=== PATIENT | female | born 1940 | race Caucasian/White ===

== ENCOUNTER → 2018-12-23 | Outpatient (CLI) | payer MEDICARE ==
[~2018-12-23] MED LIST: ASPI81CH PO; Bentyl20 MG PO; Hair, Skin & N1 EACH PO; Vitamin D2000 UNIT PO
== END | disposition home or self-care (01) ==
LOC: PLD 07:36 → LAB SHORT 07:36
DX: C44.42 Squamous cell carcinoma of skin of scalp and neck (principal)
CPT/HCPCS: 88305

== ENCOUNTER → 2019-05-19 | Outpatient (CLI) | payer MEDICARE | END | disposition home or self-care (01) | LOC: PLD 08:02 → LAB SHORT 08:02 | DX: C44.629 Squamous cell carcinoma of skin of left upper limb, including shoulder (principal) | CPT/HCPCS: 88305; 88342 ==

== ENCOUNTER → 2020-02-09 | Outpatient (CLI) | payer MEDICARE | END | disposition home or self-care (01) | LOC: PLD 08:13 → LAB SHORT 08:13 | DX: D48.5 Neoplasm of uncertain behavior of skin (principal) | CPT/HCPCS: 88305 ==

== ENCOUNTER → 2020-04-19 | Outpatient (CLI) | payer MEDICARE | END | disposition home or self-care (01) | LOC: LAB SHORT 14:36 → PLD 14:36 | DX: D22.5 Melanocytic nevi of trunk (principal); L82.1 Other seborrheic keratosis | CPT/HCPCS: 88305 ==

== ENCOUNTER → 2021-06-27 | Outpatient (CLI) | payer OTHER | END | disposition home or self-care (01) | LOC: PLD 12:11 → LAB SHORT 12:11 | DX: C44.519 Basal cell carcinoma of skin of other part of trunk (principal); D48.5 Neoplasm of uncertain behavior of skin | CPT/HCPCS: 88305 ==

== ENCOUNTER → 2021-08-02 | Outpatient (CLI) | payer OTHER | END | disposition home or self-care (01) | LOC: LAB SHORT 12:01 → LAB 12:01 | DX: D48.5 Neoplasm of uncertain behavior of skin (principal) | CPT/HCPCS: 88305 ==

== ENCOUNTER 2024-01-31 00:13 | Day surgery (SDC) | payer OTHER ==
[2024-01-31] VITALS (7 sets, daily range): BP systolic 92–111; BP diastolic 37–53
[2024-01-31] MEDS ORDERED: NS 250 ML IV SCH (06:55)
[2024-01-31] MEDS ORDERED: SERT50 PO (13:37)
== END 2024-01-31 17:38 | disposition home or self-care (01) ==
LOC: ATC 00:13
DX: D61.818 Other pancytopenia (principal); F17.210 Nicotine dependence, cigarettes, uncomplicated; Z79.899 Other long term (current) drug therapy; Z88.5 Allergy status to narcotic agent; Z90.49 Acquired absence of other specified parts of digestive tract
CPT/HCPCS: 36430; 86850; 86900; 86901; 86920; J7050; P9016

== ENCOUNTER 2024-02-25 05:00 | Day surgery (SDC) | payer OTHER ==
[2024-02-24 12:04] LABS: Hematocrit 24.3 % (33.0-51.0); Hemoglobin 7.4 g/dL (11.5-16.0); Mean Corpuscular HGB 29.6 pg (26.0-34.0); Mean Corpuscular HGB Conc 30.5 g/dL (31.5-36.5); Mean Corpuscular Volume 97 fL (80-100); Mean Platelet Volume 10.4 fL (9.1-12.4); NRBC ABSOLUTE 0.02 K/mm3 (0.00-0.02); NRBC Auto 0.6 /100 WBC (0.0-0.2); Platelet Count 76 K/mm3 (150-400); RDW Coefficient Variation 15.5 % (11.7-14.2); RDW Standard Deviation 53.6 fL (35.1-46.3)
[2024-02-24 12:24] LABS: Albumin, Blood 3.2 g/dL (3.4-5.0); Albumin/Globulin Ratio 1.1 (0.8-1.8); Bilirubin, Total 1.6 mg/dL (0.1-1.0); Bun/Creatinine Ratio 13.8 (12.0-20.0); Calcium, Blood 8.9 mg/dL (8.5-10.1); Creatinine, Blood 1.38 mg/dL (0.40-1.00); Potassium, Blood 4.3 mmol/L (3.5-5.5); Total Protein, Blood 6.2 g/dL (6.4-8.2)
[2024-02-24 12:34] LABS: BASOPHILS PERCENT MAN 0 % (0-2); EOSINOPHILS PERCENT MAN 0 % (0-6); LYMPHOCYTES ABSOLUTE MAN 0.85 K/mm3 (0.84-5.20); LYMPHOCYTES PERCENT MAN 26 % (21-46); MONOCYTES ABSOLUTE MAN 0.26 K/mm3 (0.16-1.47); MONOCYTES PERCENT MAN 8 % (4-13); MYELOCYTE ABSOLUTE MAN 0.03 K/mm3 (0.00-0.00); MYELOCYTE PERCENT MAN 1 % (0-0); NEUTROPHILS ABSOLUTE MAN 2.14 K/mm3 (1.96-9.15); SEG NEUTROPHILS PERCENT MAN 65 % (41-73); TOTAL CELLS COUNTED 100
[~2024-02-25 05:00] MED LIST changes: +SERT50 PO
[2024-02-25] MEDS ORDERED: NS 250 ML IV SCH (07:05)
[2024-02-25 14:20] VITALS: BP 116/45
[2024-02-25 14:41] VITALS: BP 94/49
[2024-02-25] MEDS ORDERED: VENCLEXTA100 MG PO (14:49)
[2024-02-25 15:41] VITALS: BP 108/52
[2024-02-25 16:08] VITALS: BP 94/73
== END 2024-02-25 16:13 | disposition home or self-care (01) ==
LOC: ATC 05:00 → EDSTATUS 14:30 → ATC 14:30
PROVIDERS: Internal Medicine Hematology & Oncology
DX: D61.818 Other pancytopenia (principal); C92.00 Acute myeloblastic leukemia, not having achieved remission; Z90.49 Acquired absence of other specified parts of digestive tract; Z87.891 Personal history of nicotine dependence; Z79.899 Other long term (current) drug therapy; Z88.5 Allergy status to narcotic agent
CPT/HCPCS: 36415; 36430; 80053; 85025; 86850; 86900; 86901; 86923; J7050; P9016

== ENCOUNTER 2024-03-12 04:00 | Day surgery (SDC) | payer OTHER ==
[2024-03-09 14:47] LABS: Hematocrit 23.7 % (33.0-51.0); Hemoglobin 7.3 g/dL (11.5-16.0); Mean Corpuscular HGB 30.2 pg (26.0-34.0); Mean Corpuscular HGB Conc 30.8 g/dL (31.5-36.5); Mean Corpuscular Volume 98 fL (80-100); Mean Platelet Volume 10.4 fL (9.1-12.4); RDW Coefficient Variation 16.5 % (11.7-14.2); RDW Standard Deviation 57.7 fL (35.1-46.3); Red Blood Cell Count 2.42 M/mm3 (3.80-5.20); White Blood Cell Count 1.99 K/mm3 (4.00-11.30)
[2024-03-09 14:58] LABS: Platelet Count 37 K/mm3 (150-400)
[2024-03-09 15:10] LABS: BASOPHILS PERCENT MAN 0 % (0-2); EOSINOPHILS ABSOLUTE MAN 0.11 K/mm3 (0.00-0.68); EOSINOPHILS PERCENT MAN 6 % (0-6); LYMPHOCYTES ABSOLUTE MAN 0.91 K/mm3 (0.84-5.20); LYMPHOCYTES PERCENT MAN 46 % (21-46); MONOCYTES ABSOLUTE MAN 0.03 K/mm3 (0.16-1.47); MONOCYTES PERCENT MAN 2 % (4-13); NEUTROPHILS ABSOLUTE MAN 0.91 K/mm3 (1.96-9.15); SEG NEUTROPHILS PERCENT MAN 46 % (41-73); TOTAL CELLS COUNTED 50
[~2024-03-12 04:00] MED LIST changes: +VENCLEXTA100 MG PO
[2024-03-12] MEDS ORDERED: NS 250 ML IV SCH (06:55)
[2024-03-12 13:35] VITALS: BP 118/67
[2024-03-12 13:48] VITALS: BP 97/60
[2024-03-12 14:06] VITALS: BP 82/45
[2024-03-12 15:06] VITALS: BP 97/43
[2024-03-12 16:22] VITALS: BP 104/63
== END 2024-03-12 16:29 | disposition home or self-care (01) ==
LOC: ATC 04:00 → LAB FUT 02-23 11:10 → EDSTATUS 02-23 11:10 → ATC 02-23 11:10
PROVIDERS: Internal Medicine Hematology & Oncology
DX: C92.00 Acute myeloblastic leukemia, not having achieved remission (principal); D61.818 Other pancytopenia; Z88.5 Allergy status to narcotic agent
CPT/HCPCS: 36415; 36430; 85025; 86850; 86900; 86901; 86923; J7050; P9016

== ENCOUNTER 2024-03-17 05:49 | Day surgery (SDC) | payer OTHER ==
[2024-03-16 14:31] LABS: Hematocrit 20.5 % (33.0-51.0); Hemoglobin 6.4 g/dL (11.5-16.0); Mean Corpuscular HGB 30.3 pg (26.0-34.0); Mean Corpuscular HGB Conc 31.2 g/dL (31.5-36.5); Mean Corpuscular Volume 97 fL (80-100); Mean Platelet Volume 9.9 fL (9.1-12.4); RDW Coefficient Variation 15.4 % (11.7-14.2); RDW Standard Deviation 53.4 fL (35.1-46.3); Red Blood Cell Count 2.11 M/mm3 (3.80-5.20); White Blood Cell Count 3.53 K/mm3 (4.00-11.30)
[2024-03-16 14:37] LABS: Platelet Count 3 K/mm3 (150-400)
[2024-03-16 14:55] LABS: BASOPHILS PERCENT MAN 0 % (0-2); EOSINOPHILS PERCENT MAN 0 % (0-6); LYMPHOCYTES ABSOLUTE MAN 1.05 K/mm3 (0.84-5.20); LYMPHOCYTES PERCENT MAN 30 % (21-46); MONOCYTES ABSOLUTE MAN 0.35 K/mm3 (0.16-1.47); MONOCYTES PERCENT MAN 10 % (4-13); NEUTROPHILS ABSOLUTE MAN 2.11 K/mm3 (1.96-9.15); SEG NEUTROPHILS PERCENT MAN 60 % (41-73); TOTAL CELLS COUNTED 100
[2024-03-17] MEDS ORDERED: NS 250 ML IV SCH (13:15)
== END 2024-03-17 23:00 | disposition home or self-care (01) ==
LOC: ATC 05:49 → LAB FUT 03-10 10:25 → EDSTATUS 03-10 10:25
PROVIDERS: Registered Nurse Oncology
DX: C92.00 Acute myeloblastic leukemia, not having achieved remission (principal); D61.818 Other pancytopenia; Z88.5 Allergy status to narcotic agent
CPT/HCPCS: 36415; 85025; 86850; 86900; 86901; 86923

== ENCOUNTER 2024-03-17 12:55 | Emergency (ER) | payer OTHER ==
[~2024-03-17] VITALS: Ht 162.6 cm; Wt 47.6 kg
[~2024-03-17 12:55] MED LIST changes: +SERT100 PO; -SERT50 PO
[2024-03-17] MEDS ORDERED: Pantoprazole Sodium 40 MG Injection IV ONE (13:10)
[2024-03-17] MEDS ORDERED: NS 1,000 ML IV SCH (13:10)
[2024-03-17 14:10] LABS: Albumin, Blood 2.7 g/dL (3.4-5.0); Albumin/Globulin Ratio 1.1 (0.8-1.8); Bilirubin, Total 1.6 mg/dL (0.1-1.0); Bun/Creatinine Ratio 19.3 (12.0-20.0); Calcium, Blood 7.9 mg/dL (8.5-10.1); Creatinine, Blood 1.5 mg/dL (0.40-1.00); Globulin, Blood 2.5 g/dL (2.2-4.0); Potassium, Blood 5.3 mmol/L (3.5-5.5); Total Protein, Blood 5.2 g/dL (6.4-8.2)
[2024-03-17 14:10] LABS: International Normalized Ratio 1.17; Prothrombin Time Results 12.4 Sec (9.7-11.5)
[2024-03-17 14:50] LABS: Mean Corpuscular HGB 30.6 pg (26.0-34.0); Mean Corpuscular HGB Conc 32.7 g/dL (31.5-36.5); Mean Corpuscular Volume 94 fL (80-100); NRBC ABSOLUTE 0.04 K/mm3 (0.00-0.02); NRBC Auto 1.6 /100 WBC (0.0-0.2); RDW Standard Deviation 50.4 fL (35.1-46.3); Red Blood Cell Count 1.11 M/mm3 (3.80-5.20); White Blood Cell Count 2.58 K/mm3 (4.00-11.30)
[2024-03-17 14:53] LABS: Hematocrit 10.4 % (33.0-51.0); Hemoglobin 3.4 g/dL (11.5-16.0); Platelet Count 5 K/mm3 (150-400)
[2024-03-17 15:44] LABS: BAND PERCENT MAN 2 % (0-8); BASOPHILS PERCENT MAN 0 % (0-2); EOSINOPHILS ABSOLUTE MAN 0.02 K/mm3 (0.00-0.68); EOSINOPHILS PERCENT MAN 1 % (0-6); LYMPHOCYTES ABSOLUTE MAN 0.92 K/mm3 (0.84-5.20); LYMPHOCYTES PERCENT MAN 36 % (21-46); MONOCYTES ABSOLUTE MAN 0.12 K/mm3 (0.16-1.47); MONOCYTES PERCENT MAN 5 % (4-13); MYELOCYTE ABSOLUTE MAN 0.02 K/mm3 (0.00-0.00); MYELOCYTE PERCENT MAN 1 % (0-0); NEUTROPHILS ABSOLUTE MAN 1.47 K/mm3 (1.96-9.15); SEG NEUTROPHILS PERCENT MAN 55 % (41-73); TOTAL CELLS COUNTED 100
[2024-03-17] MEDS ORDERED: LORazepam 2 MG/ML 1ML Injection IV ONE (17:40)
[2024-03-17 18:45] VITALS: BP 130/53
== END 2024-03-17 19:00 | disposition short-term general hospital (02) ==
LOC: ER 12:55
PROVIDERS: Student in an Organized Health Care Education/Training Program
DX: C92.00 Acute myeloblastic leukemia, not having achieved remission (principal); K92.2 Gastrointestinal hemorrhage, unspecified; D64.9 Anemia, unspecified; D69.6 Thrombocytopenia, unspecified; F17.200 Nicotine dependence, unspecified, uncomplicated; Z88.5 Allergy status to narcotic agent; Z79.899 Other long term (current) drug therapy; D61.818 Other pancytopenia
CPT/HCPCS: 36415; 36430; 74174; 80053; 85025; 85610; 85730; 86850; 86900; 86901; 86923; 96374-59; 99285-25; J2060; J2470; J7030; P9016; P9035; Q9967

== ENCOUNTER 2024-03-25 08:51 | Day surgery (SDC) | payer OTHER ==
[2024-03-23 14:20] LABS: Hematocrit 26.9 % (33.0-51.0); Hemoglobin 8.9 g/dL (11.5-16.0); Mean Corpuscular HGB 29.7 pg (26.0-34.0); Mean Corpuscular HGB Conc 33.1 g/dL (31.5-36.5); Mean Corpuscular Volume 90 fL (80-100); Mean Platelet Volume 11.1 fL (9.1-12.4); RDW Coefficient Variation 14.9 % (11.7-14.2); RDW Standard Deviation 47.8 fL (35.1-46.3); White Blood Cell Count 4.18 K/mm3 (4.00-11.30)
[2024-03-23 14:38] LABS: Platelet Count 17 K/mm3 (150-400)
[2024-03-23 14:48] LABS: BAND PERCENT MAN 1 % (0-8); BASOPHILS PERCENT MAN 0 % (0-2); EOSINOPHILS ABSOLUTE MAN 0.04 K/mm3 (0.00-0.68); EOSINOPHILS PERCENT MAN 1 % (0-6); LYMPHOCYTES ABSOLUTE MAN 0.87 K/mm3 (0.84-5.20); LYMPHOCYTES PERCENT MAN 21 % (21-46); METAMYELOCYTE ABSOLUTE MAN 0.12 K/mm3 (0.00-0.00); METAMYELOCYTE PERCENT MAN 3 % (0-0); MONOCYTES ABSOLUTE MAN 1.04 K/mm3 (0.16-1.47); MONOCYTES PERCENT MAN 25 % (4-13); MYELOCYTE ABSOLUTE MAN 0.04 K/mm3 (0.00-0.00); MYELOCYTE PERCENT MAN 1 % (0-0); NEUTROPHILS ABSOLUTE MAN 2.04 K/mm3 (1.96-9.15); SEG NEUTROPHILS PERCENT MAN 48 % (41-73); TOTAL CELLS COUNTED 100
[~2024-03-25 08:51] MED LIST changes: -SERT100 PO; +SERT50 PO
[2024-03-25] MEDS ORDERED: NS 250 ML IV SCH (09:50)
[2024-03-25 13:46] VITALS: BP 110/46
[2024-03-25 14:03] VITALS: BP 100/45
[2024-03-25 15:06] VITALS: BP 109/50
== END 2024-03-25 15:11 | disposition home or self-care (01) ==
LOC: ATC 08:51
PROVIDERS: Internal Medicine Hematology & Oncology
DX: C92.00 Acute myeloblastic leukemia, not having achieved remission (principal)
CPT/HCPCS: 36415; 36430; 85025; 86900; 86901; J7050; P9035

== ENCOUNTER 2024-03-30 09:23 | Inpatient (IN) | payer OTHER ==
[~2024-03-30] VITALS: Ht 162.6 cm; Wt 47.6 kg
[~2024-03-30 09:23] MED LIST changes: +SERT100 PO; -SERT50 PO
[2024-03-30 10:07] LABS: Albumin, Blood 3.2 g/dL (3.4-5.0); Albumin/Globulin Ratio 1.1 (0.8-1.8); Bilirubin, Total 0.9 mg/dL (0.1-1.0); Calcium, Blood 9.1 mg/dL (8.5-10.1); Creatinine, Blood 0.95 mg/dL (0.40-1.00); Globulin, Blood 2.9 g/dL (2.2-4.0); Potassium, Blood 4.4 mmol/L (3.5-5.5); Total Protein, Blood 6.1 g/dL (6.4-8.2)
[2024-03-30 10:52] LABS: BASOPHILS PERCENT AUTO 0 % (0-2); EOSINOPHILS ABSOLUTE AUTO 0.01 K/mm3 (0.00-0.68); EOSINOPHILS PERCENT AUTO 0 % (0-6); Hematocrit 18.4 % (33.0-51.0); Hemoglobin 6.2 g/dL (11.5-16.0); IMMATURE GRAN ABSOLUTE AUTO 0.02 K/mm3 (0.00-0.10); IMMATURE GRAN PERCENT AUTO 1 % (0-1); LYMPHOCYTES ABSOLUTE AUTO 0.74 K/mm3 (0.84-5.20); LYMPHOCYTES PERCENT AUTO 32 % (21-46); MONOCYTES ABSOLUTE AUTO 0.24 K/mm3 (0.16-1.47); MONOCYTES PERCENT AUTO 10 % (4-13); Mean Corpuscular HGB 30.2 pg (26.0-34.0); Mean Corpuscular HGB Conc 33.7 g/dL (31.5-36.5); Mean Corpuscular Volume 90 fL (80-100); NEUTROPHILS ABSOLUTE AUTO 1.32 K/mm3 (1.96-9.15); NEUTROPHILS PERCENT AUTO 57 % (41-73); RDW Coefficient Variation 14.4 % (11.7-14.2); RDW Standard Deviation 46.7 fL (35.1-46.3); Red Blood Cell Count 2.05 M/mm3 (3.80-5.20); White Blood Cell Count 2.33 K/mm3 (4.00-11.30)
[2024-03-30 11:33] LABS: Platelet Count 4 K/mm3 (150-400)
[2024-03-30] MEDS ORDERED: NS 1,000 ML IV SCH ×3 (12:25→15:55)
[2024-03-30] MEDS ORDERED: FLU VACC TS2024-25(6MOS UP)/PF 45 MCG/0.5 ML SYRINGE IM SCH (12:30)
[2024-03-30] MEDS ORDERED: NS 1,000 ML IV ONE (13:10)
[2024-03-30] MEDS ORDERED: NS 250 ML IV SCH (13:55)
[2024-03-30 16:52] LABS: Hematocrit 21.8 % (33.0-51.0); Hemoglobin 7.3 g/dL (11.5-16.0); Mean Corpuscular HGB 29.8 pg (26.0-34.0); Mean Corpuscular HGB Conc 33.5 g/dL (31.5-36.5); Mean Corpuscular Volume 89 fL (80-100); Mean Platelet Volume 10.5 fL (9.1-12.4); RDW Coefficient Variation 14.3 % (11.7-14.2); RDW Standard Deviation 46.5 fL (35.1-46.3); Red Blood Cell Count 2.45 M/mm3 (3.80-5.20); White Blood Cell Count 1.81 K/mm3 (4.00-11.30)
[2024-03-30 16:58] LABS: Platelet Count 9 K/mm3 (150-400)
[2024-03-30 17:13] LABS: BASOPHILS PERCENT MAN 0 % (0-2); EOSINOPHILS PERCENT MAN 0 % (0-6); LYMPHOCYTES ABSOLUTE MAN 0.95 K/mm3 (0.84-5.20); LYMPHOCYTES PERCENT MAN 53 % (21-46); MONOCYTES ABSOLUTE MAN 0.12 K/mm3 (0.16-1.47); MONOCYTES PERCENT MAN 7 % (4-13); NEUTROPHILS ABSOLUTE MAN 0.72 K/mm3 (1.96-9.15); SEG NEUTROPHILS PERCENT MAN 40 % (41-73); TOTAL CELLS COUNTED 100
[2024-03-30 18:07] VITALS: BP 102/46
--- NOTE | 2024-03-30 19:00 | NUR ---
ARRIVAL TO PCU FROM ER: PT ARRIVES TO PCU 16 VIA [facility] FROM ED. PT A&OX4. ABLE TO TRANSFER TO BED FROM [facility] 1 PERSON ASSIST. PT DENIED ANY COMPLAINTS ON ARRIVAL. NS STARTED AT 125ML/HR. PT DENIES ANY FURTHER NEEDS. CALL LIGHT IN REACH. WILL CONTINUE TO CARE FOR PT TILL END OF SHIFT.
[2024-03-30 20:28] VITALS: BP 123/59
[2024-03-30 23:43] LABS: BASOPHILS PERCENT AUTO 0 % (0-2); EOSINOPHILS PERCENT AUTO 0 % (0-6); Hematocrit 20.1 % (33.0-51.0); Hemoglobin 6.7 g/dL (11.5-16.0); Mean Corpuscular HGB 29.3 pg (26.0-34.0); Mean Corpuscular HGB Conc 33.3 g/dL (31.5-36.5); Mean Corpuscular Volume 88 fL (80-100); Platelet Count 89 K/mm3 (150-400); RDW Coefficient Variation 14.9 % (11.7-14.2); RDW Standard Deviation 47.8 fL (35.1-46.3); Red Blood Cell Count 2.29 M/mm3 (3.80-5.20); White Blood Cell Count 2.23 K/mm3 (4.00-11.30)
[2024-03-30 23:46] LABS: IMMATURE GRAN ABSOLUTE AUTO 0.02 K/mm3 (0.00-0.10); IMMATURE GRAN PERCENT AUTO 1 % (0-1); LYMPHOCYTES ABSOLUTE AUTO 1.13 K/mm3 (0.84-5.20); LYMPHOCYTES PERCENT AUTO 51 % (21-46); MONOCYTES ABSOLUTE AUTO 0.34 K/mm3 (0.16-1.47); MONOCYTES PERCENT AUTO 15 % (4-13); NEUTROPHILS ABSOLUTE AUTO 0.74 K/mm3 (1.96-9.15); NEUTROPHILS PERCENT AUTO 33 % (41-73)
[2024-03-31] VITALS (12 sets, daily range): BP systolic 103–155; BP diastolic 44–89
[2024-03-31] MEDS ORDERED: NS 250 ML IV PRN (00:55)
--- NOTE | 2024-03-31 06:15 | NUR ---
SHIFT SUMMARY ASSUMED CARE OF PT AT APPROX 1900. PT A&O4, COOPERATIVE IN CARE AND ABLE TO EXPRESS NEEDS APPROPRIATELY. VSS WHILE PT ON RA. PT DID HAVE ONE BM WITH BURGUNDY STOOL PRESENT. HGB LAB CAME BACK 6.7 FROM 7.3; [employer] NOTIFIED AND ORDERS PLACED FOR 1U PRBCs. PT TOLERATED UNIT WELL. AWAITING NEW LABS. PT BED IN LOWEST POSITION AND CALL LIGHT WITHIN REACH.
[2024-03-31 07:44] LABS: BASOPHILS PERCENT AUTO 0 % (0-2); EOSINOPHILS PERCENT AUTO 0 % (0-6); Hematocrit 25.4 % (33.0-51.0); Hemoglobin 8.6 g/dL (11.5-16.0); IMMATURE GRAN ABSOLUTE AUTO 0.03 K/mm3 (0.00-0.10); IMMATURE GRAN PERCENT AUTO 1 % (0-1); LYMPHOCYTES ABSOLUTE AUTO 0.98 K/mm3 (0.84-5.20); LYMPHOCYTES PERCENT AUTO 36 % (21-46); MONOCYTES ABSOLUTE AUTO 0.38 K/mm3 (0.16-1.47); MONOCYTES PERCENT AUTO 14 % (4-13); Mean Corpuscular HGB 30.4 pg (26.0-34.0); Mean Corpuscular HGB Conc 33.9 g/dL (31.5-36.5); Mean Corpuscular Volume 90 fL (80-100); Mean Platelet Volume 10.3 fL (9.1-12.4); NEUTROPHILS ABSOLUTE AUTO 1.32 K/mm3 (1.96-9.15); NEUTROPHILS PERCENT AUTO 49 % (41-73); Platelet Count 72 K/mm3 (150-400); RDW Coefficient Variation 14.6 % (11.7-14.2); RDW Standard Deviation 47.1 fL (35.1-46.3); Red Blood Cell Count 2.83 M/mm3 (3.80-5.20); White Blood Cell Count 2.71 K/mm3 (4.00-11.30)
[2024-03-31 07:59] LABS: Albumin, Blood 2.9 g/dL (3.4-5.0); Calcium, Blood 8.3 mg/dL (8.5-10.1); Creatinine, Blood 0.8 mg/dL (0.40-1.00); Globulin, Blood 2.9 g/dL (2.2-4.0); Potassium, Blood 4.4 mmol/L (3.5-5.5); Total Protein, Blood 5.8 g/dL (6.4-8.2)
[2024-03-31] MEDS ORDERED: Sertraline HCl 100 MG Tab PO SCH (09:00)
--- NOTE | 2024-03-31 09:41 | NUR ---
ASSUMPTION OF CARE: PATIENT IS NOT INFUSING ANY MEDICATIONS, Hgb ON AM POLLY IMPROVED. PATIENT ALERT AND ORIENTED X 4, NO SIGN OF DISTRESS. DENIES CHEST PAIN PRESSURE OR SOB. VSS. CONTINUOUS TELE AND PULSEOXIMTERY IN PLACE. AFEBRILE. RR <20. PATIENT HAS BEEN ABLE TO MAKE NEEDS KNOWN, TOLERATED A FULL LIQUID DIET. PALLIATIVE CONSULT IN, CASE MANAGEMENT SEEN. HOSPITALIST PLAN FOR DISCHARGE IF VSS THIS AFTERNOON. NO ACUTE CONCERNS FROM PROVIDER OR THIS RN. DISCUSSION OF HOSPICE TOOK PLACE, COORDINATION OUTPATIENT WITH ONCOLOGIST NEEDED NO CHANGE TO PLAN OF CARE AT THIS TIME.
--- NOTE | 2024-03-31 12:23 | NUR ---
DISCHARGE SUMMARY: [place] AT BEDSIDE ( FRIEND WHO HELPS WITH APPOINTMENTS AND CARE.) AT BEDSIDE AT TIME OF DISCHARGE INSTRUCTIONS, MEDICATIONS TO BE CONTINUED. CALL WITH DR. SELBY OFFICE FOR SOONER APPOINTMENT ALONG WITH MED REFILLS. PATIENT IN NO SIGN OF DISTRESS VSS. AFEBRILE, PALLIATIVE CARE FILL POLST TO BE SIGNED BEFORE PATIENT LEAVES. DISCHARGE INSTRUCTIONS GIVEN AND EDUCATED WITH NO FURTHER QUESTIONS OR CONCERNS. NEED FOR DR. SELBY CARE COORDINATION FOR [facility] PLAN. NO ACUTE CONCERNS FROM THIS RN
--- NOTE | 2024-03-31 15:12 | NUR ---
MEET AND GREET WITH BRIT JUST PRIOR TO HER D/C TO HOME. REVIEWED CODE STATUS OPTIONS AND HER WISHES. EDUCATION ON DNR VS FULL CODE. BRIT ELECTS DNR. EDUCATION ON EACH LEVEL OF MEDICAL INTERVENTIONS. SHE ELECTS FOR SELECTIVE MEDICAL INTERVENTIONS. SHE DOES NOT WANT A FEEDING TUBE, INTUBATION OR AGRESSIVE MEASURES. POLST FORM FILLED OUT TO REFLECT DNR/SELECTIVE TREATMENT. PROVIDER NOT AVAILABLE AT THIS TIME TO SIGN POLST. PT TO TAKE POLST FORM WITH HER TO HER NEXT PCP APPT.
== END 2024-03-31 12:35 | disposition home or self-care (01) | DRG 374 ==
LOC: ER 09:23 → ERHOLD 12:29 → PCU 17:30
PROVIDERS: Emergency Medicine; Internal Medicine; ADMIT Hospitalist
PROC: 30233N1 Transfusion of Nonautologous Red Blood Cells into Peripheral Vein, Percutaneous Approach (ICD-10-PCS; principal; 2024-03-30)
DX: C20 Malignant neoplasm of rectum (principal); D61.811 Other drug-induced pancytopenia; C18.9 Malignant neoplasm of colon, unspecified; Z68.1 Body mass index [BMI] 19.9 or less, adult; C96.9 Malignant neoplasm of lymphoid, hematopoietic and related tissue, unspecified; R64 Cachexia; C92.00 Acute myeloblastic leukemia, not having achieved remission; F17.210 Nicotine dependence, cigarettes, uncomplicated; D46.9 Myelodysplastic syndrome, unspecified; I95.9 Hypotension, unspecified; F41.9 Anxiety disorder, unspecified; T50.Z95A Adverse effect of other vaccines and biological substances, initial encounter; D69.59 Other secondary thrombocytopenia; R54 Age-related physical debility; Z88.5 Allergy status to narcotic agent; Z79.899 Other long term (current) drug therapy; Z90.89 Acquired absence of other organs; Z98.42 Cataract extraction status, left eye; Z98.41 Cataract extraction status, right eye
CPT/HCPCS: 36415; 36430; 80053; 85025; 86850; 86900; 86901; 86923; 99285-25; A9270; J7030; P9016; P9035

== ENCOUNTER 2024-04-09 01:14 | Day surgery (SDC) | payer OTHER ==
[2024-04-06 14:38] LABS: Hematocrit 24.7 % (33.0-51.0); Hemoglobin 8.1 g/dL (11.5-16.0); Mean Corpuscular HGB 30.6 pg (26.0-34.0); Mean Corpuscular HGB Conc 32.8 g/dL (31.5-36.5); Mean Corpuscular Volume 93 fL (80-100); RDW Coefficient Variation 14.4 % (11.7-14.2); RDW Standard Deviation 48.9 fL (35.1-46.3); Red Blood Cell Count 2.65 M/mm3 (3.80-5.20); White Blood Cell Count 1.95 K/mm3 (4.00-11.30)
[2024-04-06 14:53] LABS: Platelet Count 10 K/mm3 (150-400)
[2024-04-06 15:06] LABS: BASOPHILS PERCENT MAN 0 % (0-2); EOSINOPHILS PERCENT MAN 0 % (0-6); LYMPHOCYTES ABSOLUTE MAN 0.97 K/mm3 (0.84-5.20); LYMPHOCYTES PERCENT MAN 50 % (21-46); MONOCYTES ABSOLUTE MAN 0.19 K/mm3 (0.16-1.47); MONOCYTES PERCENT MAN 10 % (4-13); NEUTROPHILS ABSOLUTE MAN 0.78 K/mm3 (1.96-9.15); SEG NEUTROPHILS PERCENT MAN 40 % (41-73); TOTAL CELLS COUNTED 50
[2024-04-09] MEDS ORDERED: NS 250 ML IV SCH (07:05)
[2024-04-09] MEDS ORDERED: MAGNESIUM PO (13:36)
[2024-04-09 13:47] VITALS: BP 108/43
[2024-04-09 14:06] VITALS: BP 88/51
[2024-04-09 14:33] VITALS: BP 82/43
[2024-04-09 15:02] VITALS: BP 80/44
[2024-04-09 15:15] VITALS: BP 104/46
== END 2024-04-09 15:17 | disposition home or self-care (01) ==
LOC: ATC 01:14 → EDSTATUS 13:30 → ATC 15:17
PROVIDERS: Internal Medicine Hematology & Oncology
DX: C92.00 Acute myeloblastic leukemia, not having achieved remission (principal); D61.818 Other pancytopenia; Z87.891 Personal history of nicotine dependence; Z88.5 Allergy status to narcotic agent
CPT/HCPCS: 36415; 36430; 85025; 86900; 86901; J7050; P9035

== ENCOUNTER 2024-04-14 02:30 | Day surgery (SDC) | payer OTHER ==
[2024-04-13 13:47] LABS: Hematocrit 19.9 % (33.0-51.0); Hemoglobin 6.7 g/dL (11.5-16.0); Mean Corpuscular HGB 31.3 pg (26.0-34.0); Mean Corpuscular HGB Conc 33.7 g/dL (31.5-36.5); Mean Corpuscular Volume 93 fL (80-100); RDW Coefficient Variation 14.1 % (11.7-14.2); RDW Standard Deviation 47.8 fL (35.1-46.3); Red Blood Cell Count 2.14 M/mm3 (3.80-5.20); White Blood Cell Count 2.32 K/mm3 (4.00-11.30)
[2024-04-13 14:16] LABS: Platelet Count 23 K/mm3 (150-400)
[2024-04-13 15:10] LABS: BAND PERCENT MAN 2 % (0-8); BASOPHILS PERCENT MAN 0 % (0-2); EOSINOPHILS PERCENT MAN 0 % (0-6); LYMPHOCYTES ABSOLUTE MAN 0.83 K/mm3 (0.84-5.20); LYMPHOCYTES PERCENT MAN 36 % (21-46); MONOCYTES ABSOLUTE MAN 0.06 K/mm3 (0.16-1.47); MONOCYTES PERCENT MAN 3 % (4-13); NEUTROPHILS ABSOLUTE MAN 1.41 K/mm3 (1.96-9.15); SEG NEUTROPHILS PERCENT MAN 59 % (41-73); TOTAL CELLS COUNTED 100
[~2024-04-14 02:30] MED LIST changes: +MAGNESIUM PO
[2024-04-14] MEDS ORDERED: NS 250 ML IV SCH (07:20)
[2024-04-14 13:20] VITALS: BP 114/37
[2024-04-14 13:43] VITALS: BP 99/47
[2024-04-14 15:00] VITALS: BP 103/45
[2024-04-14 15:29] VITALS: BP 86/41
== END 2024-04-14 17:00 | disposition home or self-care (01) ==
LOC: ATC 02:30 → EDSTATUS 13:15 → ATC 13:15
PROVIDERS: Internal Medicine Hematology & Oncology
DX: C92.00 Acute myeloblastic leukemia, not having achieved remission (principal); D46.22 Refractory anemia with excess of blasts 2; F17.200 Nicotine dependence, unspecified, uncomplicated; Z79.899 Other long term (current) drug therapy; Z88.5 Allergy status to narcotic agent
CPT/HCPCS: 36415; 36430; 85025; 86850; 86900; 86901; 86923; J7050; P9016

== ENCOUNTER 2024-04-21 08:41 | Day surgery (SDC) | payer OTHER ==
[2024-04-20 14:52] LABS: Hematocrit 22.2 % (33.0-51.0); Hemoglobin 7.3 g/dL (11.5-16.0); Mean Corpuscular HGB 30.4 pg (26.0-34.0); Mean Corpuscular HGB Conc 32.9 g/dL (31.5-36.5); Mean Corpuscular Volume 93 fL (80-100); Mean Platelet Volume 12.1 fL (9.1-12.4); RDW Coefficient Variation 13.4 % (11.7-14.2); RDW Standard Deviation 45.1 fL (35.1-46.3); White Blood Cell Count 2.74 K/mm3 (4.00-11.30)
[2024-04-20 15:11] LABS: Platelet Count 3 K/mm3 (150-400)
[2024-04-20 15:39] LABS: Albumin, Blood 3.3 g/dL (3.4-5.0); Albumin/Globulin Ratio 1.2 (0.8-1.8); Bilirubin, Total 0.8 mg/dL (0.1-1.0); Bun/Creatinine Ratio 37.9 (12.0-20.0); Calcium, Blood 8.7 mg/dL (8.5-10.1); Creatinine, Blood 1.03 mg/dL (0.40-1.00); Globulin, Blood 2.7 g/dL (2.2-4.0); Magnesium, Blood 1.7 mg/dL (1.6-2.4); Potassium, Blood 4.2 mmol/L (3.5-5.5)
[2024-04-20 15:45] LABS: BASOPHILS PERCENT MAN 0 % (0-2); EOSINOPHILS ABSOLUTE MAN 0.02 K/mm3 (0.00-0.68); EOSINOPHILS PERCENT MAN 1 % (0-6); LYMPHOCYTES ABSOLUTE MAN 1.31 K/mm3 (0.84-5.20); LYMPHOCYTES PERCENT MAN 48 % (21-46); MONOCYTES ABSOLUTE MAN 0.08 K/mm3 (0.16-1.47); MONOCYTES PERCENT MAN 3 % (4-13); NEUTROPHILS ABSOLUTE MAN 1.31 K/mm3 (1.96-9.15); SEG NEUTROPHILS PERCENT MAN 48 % (41-73); TOTAL CELLS COUNTED 100
[2024-04-21] MEDS ORDERED: NS 250 ML IV SCH (13:20)
[2024-04-21 16:12] VITALS: BP 91/35
[2024-04-21 16:29] VITALS: BP 86/34
[2024-04-21 17:32] VITALS: BP 100/42
--- NOTE | 2024-04-21 17:50 | NUR ---
PT AND PT'S FAMILY MEMBERS EDUCATED REGARDING PT'S LOW BP. UPON FURTHER INVESTIGATION IT WAS NOTED THAT THE PT WAS BLEEDING WITH BOWEL MOVEMENT LAST NIGHT AND HER LAST HGB READING WAS 7.3 YESTERDAY. PT HAS BEEN FEELING WEAK ALL DAY TODAY WELL. NURSES ENCOURAGED PT AND PT'S FAMILY MEMBER TO GO TO THE ER WHERE THEY CAN CHECK HER LABS FOR A POSSIBLE BLOOD TRANSFUSION AND OR GIVE MORE FLUIDS FOR LOW BP. PT FEELS THOUGH SHE CAN WAIT UNTIL TOMORROW AND CALL HER MD AND DO A LAB CHECK AN OUTPATIENT. RISKS OF WAITING DISCUSSED WITH PT AND FAMILY MEMBER AND BOTH VERBALIZE UNDERSTANDING AND WILL CALL THE AMBULANCE IN THE MIDDLE OF THE NIGHT IF NEEDED, BUT CURRENTLY PT'S BLOOD PRESSURE HAS IMPROVED SINCE ARRIVAL, PT IS MORE UPRIGHT AND TALKATIVE SINCE ARRIVAL AND DOES LOOK IMPROVED AFTER HER INFUSION TODAY.
== END 2024-04-21 17:46 ==
LOC: ATC 08:41
PROVIDERS: Family Medicine; Internal Medicine Hematology & Oncology
DX: C92.00 Acute myeloblastic leukemia, not having achieved remission (principal); E83.42 Hypomagnesemia; N18.30 Chronic kidney disease, stage 3 unspecified
CPT/HCPCS: 36415; 80053; 83735; 85025; 86900; 86901; J7050; P9035

== ENCOUNTER 2024-04-22 13:27 | Emergency (ER) | payer OTHER ==
[~2024-04-22] VITALS: Ht 162.6 cm; Wt 45.8 kg
[2024-04-22 14:26] LABS: Mean Corpuscular HGB 30.7 pg (26.0-34.0); Mean Corpuscular HGB Conc 33.6 g/dL (31.5-36.5); Mean Corpuscular Volume 92 fL (80-100); Mean Platelet Volume 9.2 fL (9.1-12.4); RDW Coefficient Variation 13.5 % (11.7-14.2); RDW Standard Deviation 45.1 fL (35.1-46.3); Red Blood Cell Count 1.66 M/mm3 (3.80-5.20)
[2024-04-22 14:33] LABS: Platelet Count 32 K/mm3 (150-400)
[2024-04-22 14:34] LABS: Hematocrit 15.2 % (33.0-51.0); Hemoglobin 5.1 g/dL (11.5-16.0)
[2024-04-22 14:47] LABS: Albumin, Blood 3.4 g/dL (3.4-5.0); Albumin/Globulin Ratio 1.2 (0.8-1.8); Bun/Creatinine Ratio 33.1 (12.0-20.0); Creatinine, Blood 0.91 mg/dL (0.40-1.00); Globulin, Blood 2.8 g/dL (2.2-4.0); Potassium, Blood 3.9 mmol/L (3.5-5.5); Total Protein, Blood 6.2 g/dL (6.4-8.2)
[2024-04-22 14:55] LABS: BASOPHILS PERCENT MAN 0 % (0-2); EOSINOPHILS PERCENT MAN 0 % (0-6); LYMPHOCYTES PERCENT MAN 50 % (21-46); MONOCYTES ABSOLUTE MAN 0.12 K/mm3 (0.16-1.47); MONOCYTES PERCENT MAN 5 % (4-13); NEUTROPHILS ABSOLUTE MAN 1.08 K/mm3 (1.96-9.15); SEG NEUTROPHILS PERCENT MAN 45 % (41-73); TOTAL CELLS COUNTED 100
[2024-04-22] MEDS ORDERED: B12-FOLIC ACID1 EACH PO (15:10)
[2024-04-22] MEDS ORDERED: NS 500 ML IV SCH (15:25)
[2024-04-22 22:19] LABS: Hematocrit 22.2 % (33.0-51.0); Hemoglobin 7.5 g/dL (11.5-16.0); Mean Corpuscular HGB 30.6 pg (26.0-34.0); Mean Corpuscular HGB Conc 33.8 g/dL (31.5-36.5); Mean Corpuscular Volume 91 fL (80-100); Mean Platelet Volume 9.3 fL (9.1-12.4); Platelet Count 70 K/mm3 (150-400); RDW Coefficient Variation 14.3 % (11.7-14.2); RDW Standard Deviation 46.5 fL (35.1-46.3); Red Blood Cell Count 2.45 M/mm3 (3.80-5.20); White Blood Cell Count 2.87 K/mm3 (4.00-11.30)
[2024-04-22 22:30] VITALS: BP 105/64
[2024-04-22 22:39] LABS: BAND PERCENT MAN 5 % (0-8); BASOPHILS PERCENT MAN 0 % (0-2); EOSINOPHILS PERCENT MAN 0 % (0-6); LYMPHOCYTES ABSOLUTE MAN 1.11 K/mm3 (0.84-5.20); LYMPHOCYTES PERCENT MAN 39 % (21-46); MONOCYTES ABSOLUTE MAN 0.17 K/mm3 (0.16-1.47); MONOCYTES PERCENT MAN 6 % (4-13); NEUTROPHILS ABSOLUTE MAN 1.57 K/mm3 (1.96-9.15); SEG NEUTROPHILS PERCENT MAN 50 % (41-73); TOTAL CELLS COUNTED 100
== END 2024-04-22 23:10 | disposition home or self-care (01) ==
LOC: ER 13:27
PROVIDERS: Student in an Organized Health Care Education/Training Program
DX: D62 Acute posthemorrhagic anemia (principal); D69.6 Thrombocytopenia, unspecified; C19 Malignant neoplasm of rectosigmoid junction; J44.9 Chronic obstructive pulmonary disease, unspecified; F17.210 Nicotine dependence, cigarettes, uncomplicated; Z88.5 Allergy status to narcotic agent; Z79.899 Other long term (current) drug therapy
CPT/HCPCS: 36430; 80053; 85025; 86850; 86900; 86901; 86923; 93005; 93010; 99284-25; J7030; P9016; P9035

== ENCOUNTER 2024-04-28 00:46 | Day surgery (SDC) | payer OTHER ==
[2024-04-27 14:23] LABS: Hematocrit 23.2 % (33.0-51.0); Hemoglobin 7.6 g/dL (11.5-16.0); Mean Corpuscular HGB Conc 32.8 g/dL (31.5-36.5); Mean Corpuscular Volume 92 fL (80-100); Mean Platelet Volume 9.4 fL (9.1-12.4); RDW Coefficient Variation 14.1 % (11.7-14.2); RDW Standard Deviation 46.7 fL (35.1-46.3); Red Blood Cell Count 2.53 M/mm3 (3.80-5.20); White Blood Cell Count 2.44 K/mm3 (4.00-11.30)
[2024-04-27 14:40] LABS: Platelet Count 6 K/mm3 (150-400)
[2024-04-27 15:36] LABS: BAND PERCENT MAN 9 % (0-8); BASOPHILS PERCENT MAN 0 % (0-2); EOSINOPHILS ABSOLUTE MAN 0.09 K/mm3 (0.00-0.68); EOSINOPHILS PERCENT MAN 4 % (0-6); LYMPHOCYTES ABSOLUTE MAN 0.63 K/mm3 (0.84-5.20); LYMPHOCYTES PERCENT MAN 26 % (21-46); MONOCYTES ABSOLUTE MAN 0.07 K/mm3 (0.16-1.47); MONOCYTES PERCENT MAN 3 % (4-13); MYELOCYTE ABSOLUTE MAN 0.04 K/mm3 (0.00-0.00); MYELOCYTE PERCENT MAN 2 % (0-0); NEUTROPHILS ABSOLUTE MAN 1.58 K/mm3 (1.96-9.15); SEG NEUTROPHILS PERCENT MAN 56 % (41-73); TOTAL CELLS COUNTED 100
[~2024-04-28 00:46] MED LIST changes: +B12-FOLIC ACID1 EACH PO
[2024-04-28] MEDS ORDERED: NS 250 ML IV SCH (10:35)
[2024-04-28 13:44] VITALS: BP 100/48
[2024-04-28 14:01] VITALS: BP 100/40
[2024-04-28 14:43] VITALS: BP 95/50
[2024-04-28 15:07] VITALS: BP 97/44
[2024-04-28 16:10] VITALS: BP 105/47
== END 2024-04-28 17:00 | disposition home or self-care (01) ==
LOC: ATC 00:46 → EDSTATUS 13:30 → ATC 17:00
PROVIDERS: Internal Medicine Hematology & Oncology
DX: C92.00 Acute myeloblastic leukemia, not having achieved remission (principal); Z87.891 Personal history of nicotine dependence; Z88.5 Allergy status to narcotic agent; Z79.899 Other long term (current) drug therapy
CPT/HCPCS: 36415; 36430; 85025; 86850; 86900; 86901; 86923; J7050; P9016; P9035

== ENCOUNTER 2024-05-06 01:25 | Day surgery (SDC) | payer OTHER ==
[2024-05-04 14:14] LABS: BASOPHILS PERCENT AUTO 0 % (0-2); EOSINOPHILS ABSOLUTE AUTO 0.08 K/mm3 (0.00-0.68); EOSINOPHILS PERCENT AUTO 3 % (0-6); Hematocrit 25.5 % (33.0-51.0); Hemoglobin 8.4 g/dL (11.5-16.0); Mean Corpuscular HGB 30.2 pg (26.0-34.0); Mean Corpuscular HGB Conc 32.9 g/dL (31.5-36.5); Mean Corpuscular Volume 92 fL (80-100); Mean Platelet Volume 10.9 fL (9.1-12.4); RDW Coefficient Variation 14.1 % (11.7-14.2); RDW Standard Deviation 46.6 fL (35.1-46.3); Red Blood Cell Count 2.78 M/mm3 (3.80-5.20); White Blood Cell Count 2.64 K/mm3 (4.00-11.30)
[2024-05-04 14:29] LABS: IMMATURE GRAN ABSOLUTE AUTO 0.04 K/mm3 (0.00-0.10); IMMATURE GRAN PERCENT AUTO 2 % (0-1); LYMPHOCYTES PERCENT AUTO 30 % (21-46); MONOCYTES ABSOLUTE AUTO 0.24 K/mm3 (0.16-1.47); MONOCYTES PERCENT AUTO 9 % (4-13); NEUTROPHILS ABSOLUTE AUTO 1.48 K/mm3 (1.96-9.15); NEUTROPHILS PERCENT AUTO 56 % (41-73)
[2024-05-04 14:30] LABS: Platelet Count 4 K/mm3 (150-400)
[2024-05-06] MEDS ORDERED: NS 250 ML IV SCH (06:55)
[2024-05-06 13:25] VITALS: BP 107/37
[2024-05-06 13:49] VITALS: BP 91/40
[2024-05-06 14:33] VITALS: BP 96/51
[2024-05-10] MEDS ORDERED: Acetaminophen650 M1 PO (14:43)
== END 2024-05-06 14:37 | disposition home or self-care (01) ==
LOC: ATC 01:25 → EDSTATUS 13:30 → ATC 13:30
PROVIDERS: Internal Medicine Hematology & Oncology
DX: C92.00 Acute myeloblastic leukemia, not having achieved remission (principal); F17.210 Nicotine dependence, cigarettes, uncomplicated; Z88.5 Allergy status to narcotic agent; Z79.899 Other long term (current) drug therapy
CPT/HCPCS: 36415; 36430; 85025; 86900; 86901; J7050; P9035

== ENCOUNTER 2024-05-29 03:49 | Day surgery (SDC) | payer OTHER ==
[2024-05-26 13:59] LABS: Hemoglobin 7.2 g/dL (11.5-16.0); Mean Corpuscular HGB 30.8 pg (26.0-34.0); Mean Corpuscular HGB Conc 32.7 g/dL (31.5-36.5); Mean Corpuscular Volume 94 fL (80-100); NRBC ABSOLUTE 0.09 K/mm3 (0.00-0.02); NRBC Auto 1.7 /100 WBC (0.0-0.2); RDW Coefficient Variation 15.9 % (11.7-14.2); RDW Standard Deviation 46.7 fL (35.1-46.3); Red Blood Cell Count 2.34 M/mm3 (3.80-5.20); White Blood Cell Count 5.23 K/mm3 (4.00-11.30)
[2024-05-26 14:35] LABS: Platelet Count 4 K/mm3 (150-400)
[2024-05-26 14:43] LABS: BAND PERCENT MAN 1 % (0-8); BASOPHILS PERCENT MAN 0 % (0-2); EOSINOPHILS PERCENT MAN 0 % (0-6); LYMPHOCYTES % ATYPICAL MANUAL 2 % (0-0); LYMPHOCYTES ABSOLUTE MAN 1.15 K/mm3 (0.84-5.20); LYMPHOCYTES PERCENT MAN 20 % (21-46); MONOCYTES ABSOLUTE MAN 0.15 K/mm3 (0.16-1.47); MONOCYTES PERCENT MAN 3 % (4-13); NEUTROPHILS ABSOLUTE MAN 3.87 K/mm3 (1.96-9.15); SEG NEUTROPHILS PERCENT MAN 73 % (41-73); TOTAL CELLS COUNTED 100
[2024-05-26 14:44] LABS: BLASTS PERCENT MAN 1 % (0-0)
[2024-05-27 16:15] VITALS: BP 104/77
[2024-05-27 16:54] VITALS: BP 102/52
[~2024-05-29 03:49] MED LIST changes: +Acetaminophen650 M1 PO; +NS 250 ML IV SCH
[2024-05-29] MEDS ORDERED: NS 250 ML IV SCH (06:45)
[2024-05-29 13:40] VITALS: BP 82/40
[2024-05-29 14:06] VITALS: BP 104/45
[2024-05-29 15:07] VITALS: BP 120/54
[2024-05-29 15:26] VITALS: BP 106/44
== END 2024-05-29 15:29 | disposition home or self-care (01) ==
LOC: ATC 03:49
PROVIDERS: Internal Medicine Hematology & Oncology
DX: C92.00 Acute myeloblastic leukemia, not having achieved remission (principal)
CPT/HCPCS: 36415; 36430; 85025; 86850; 86900; 86901; 86923; J7050; P9016; P9035

== ENCOUNTER 2024-06-04 02:46 | Day surgery (SDC) | payer OTHER ==
[2024-06-01 14:11] LABS: Hematocrit 24.5 % (33.0-51.0); Hemoglobin 7.9 g/dL (11.5-16.0); Mean Corpuscular HGB 30.3 pg (26.0-34.0); Mean Corpuscular HGB Conc 32.2 g/dL (31.5-36.5); Mean Corpuscular Volume 94 fL (80-100); Mean Platelet Volume 12.4 fL (9.1-12.4); NRBC ABSOLUTE 0.19 K/mm3 (0.00-0.02); RDW Coefficient Variation 16.6 % (11.7-14.2); RDW Standard Deviation 46.8 fL (35.1-46.3); Red Blood Cell Count 2.61 M/mm3 (3.80-5.20); White Blood Cell Count 6.31 K/mm3 (4.00-11.30)
[2024-06-01 14:25] LABS: Platelet Count 10 K/mm3 (150-400)
[~2024-06-04 02:46] MED LIST changes: -NS 250 ML IV SCH
[2024-06-04] MEDS ORDERED: NS 250 ML IV SCH (07:00)
[2024-06-04 13:36] VITALS: BP 100/46
[2024-06-04 13:53] VITALS: BP 90/41
[2024-06-04 14:16] VITALS: BP 96/41
[2024-06-04 14:42] VITALS: BP 106/44
[2024-06-04 16:07] VITALS: BP 108/56
== END 2024-06-04 16:13 | disposition home or self-care (01) ==
LOC: ATC 02:46 → EDSTATUS 13:30 → ATC 13:30
PROVIDERS: Internal Medicine Hematology & Oncology
DX: C92.00 Acute myeloblastic leukemia, not having achieved remission (principal); F17.210 Nicotine dependence, cigarettes, uncomplicated; Z88.5 Allergy status to narcotic agent; Z79.899 Other long term (current) drug therapy
CPT/HCPCS: 36415; 36430; 85027; 86850; 86900; 86901; 86923; J7050; P9016; P9035

== ENCOUNTER 2024-06-16 13:05 | Emergency (ER) | payer OTHER ==
[~2024-06-16] VITALS: Ht 160 cm; Wt 45.4 kg
[2024-06-16 14:48] LABS: Hematocrit 19.4 % (33.0-51.0); Hemoglobin 6.1 g/dL (11.5-16.0); Mean Corpuscular HGB 30.5 pg (26.0-34.0); Mean Corpuscular HGB Conc 31.4 g/dL (31.5-36.5); Mean Corpuscular Volume 97 fL (80-100); Mean Platelet Volume 12.1 fL (9.1-12.4); NRBC ABSOLUTE 1.19 K/mm3 (0.00-0.02); NRBC Auto 6.3 /100 WBC (0.0-0.2); RDW Coefficient Variation 22.2 % (11.7-14.2); RDW Standard Deviation 67.1 fL (35.1-46.3); White Blood Cell Count 18.94 K/mm3 (4.00-11.30)
[2024-06-16 14:55] LABS: Platelet Count 10 K/mm3 (150-400)
[2024-06-16 15:10] LABS: International Normalized Ratio 1.14; Prothrombin Time Results 12.1 Sec (9.7-11.5)
[2024-06-16 15:18] LABS: BASOPHILS PERCENT MAN 0 % (0-2); EOSINOPHILS PERCENT MAN 0 % (0-6); MONOCYTES PERCENT MAN 0 % (4-13); TOTAL CELLS COUNTED 100
[2024-06-16 15:23] LABS: BLASTS PERCENT MAN 10 % (0-0); LYMPHOCYTES % ATYPICAL MANUAL 1 % (0-0); LYMPHOCYTES PERCENT MAN 8 % (21-46); MYELOCYTE ABSOLUTE MAN 0.56 K/mm3 (0.00-0.00); MYELOCYTE PERCENT MAN 3 % (0-0); NEUTROPHILS ABSOLUTE MAN 14.77 K/mm3 (1.96-9.15); SEG NEUTROPHILS PERCENT MAN 78 % (41-73)
[2024-06-16 15:39] LABS: Albumin, Blood 3.3 g/dL (3.4-5.0); Albumin/Globulin Ratio 1.3 (0.8-1.8); Bilirubin, Total 1.6 mg/dL (0.1-1.0); Bun/Creatinine Ratio 15.7 (12.0-20.0); Calcium, Blood 9.1 mg/dL (8.5-10.1); Creatinine, Blood 1.08 mg/dL (0.40-1.00); Globulin, Blood 2.5 g/dL (2.2-4.0); Potassium, Blood 3.8 mmol/L (3.5-5.5); Total Protein, Blood 5.8 g/dL (6.4-8.2)
[2024-06-16] MEDS ORDERED: NS 1,000 ML IV ONE (16:16)
[2024-06-16 19:26] LABS: Hematocrit 20.5 % (33.0-51.0); Hemoglobin 6.5 g/dL (11.5-16.0); Mean Corpuscular HGB 29.8 pg (26.0-34.0); Mean Corpuscular HGB Conc 31.7 g/dL (31.5-36.5); Mean Corpuscular Volume 94 fL (80-100); Mean Platelet Volume 9.3 fL (9.1-12.4); NRBC ABSOLUTE 1.03 K/mm3 (0.00-0.02); NRBC Auto 5.8 /100 WBC (0.0-0.2); Platelet Count 59 K/mm3 (150-400); RDW Coefficient Variation 18.5 % (11.7-14.2); Red Blood Cell Count 2.18 M/mm3 (3.80-5.20); White Blood Cell Count 17.75 K/mm3 (4.00-11.30)
[2024-06-16 19:43] LABS: BASOPHILS PERCENT MAN 0 % (0-2); BLASTS PERCENT MAN 9 % (0-0); EOSINOPHILS PERCENT MAN 0 % (0-6); LYMPHOCYTES ABSOLUTE MAN 3.55 K/mm3 (0.84-5.20); LYMPHOCYTES PERCENT MAN 20 % (21-46); METAMYELOCYTE ABSOLUTE MAN 0.17 K/mm3 (0.00-0.00); METAMYELOCYTE PERCENT MAN 1 % (0-0); MONOCYTES ABSOLUTE MAN 0.17 K/mm3 (0.16-1.47); MONOCYTES PERCENT MAN 1 % (4-13); MYELOCYTE ABSOLUTE MAN 0.35 K/mm3 (0.00-0.00); MYELOCYTE PERCENT MAN 2 % (0-0); NEUTROPHILS ABSOLUTE MAN 11.89 K/mm3 (1.96-9.15); SEG NEUTROPHILS PERCENT MAN 67 % (41-73); TOTAL CELLS COUNTED 100
[2024-06-16 22:30] VITALS: BP 123/75
== END 2024-06-16 22:58 | disposition home or self-care (01) ==
LOC: ER 13:05
PROVIDERS: Student in an Organized Health Care Education/Training Program
DX: D62 Acute posthemorrhagic anemia (principal); D69.6 Thrombocytopenia, unspecified; C19 Malignant neoplasm of rectosigmoid junction; F17.210 Nicotine dependence, cigarettes, uncomplicated; Z88.5 Allergy status to narcotic agent; Z79.899 Other long term (current) drug therapy
CPT/HCPCS: 36430; 80053; 85025; 85610; 85730; 86850; 86900; 86901; 86923; 93005; 93010; 99284; J7030; P9016; P9035

== ENCOUNTER 2024-06-23 04:50 | Day surgery (SDC) | payer OTHER ==
[2024-06-22 14:28] LABS: Hematocrit 30.6 % (33.0-51.0); Hemoglobin 9.4 g/dL (11.5-16.0); Mean Corpuscular HGB 30.2 pg (26.0-34.0); Mean Corpuscular HGB Conc 30.7 g/dL (31.5-36.5); Mean Corpuscular Volume 98 fL (80-100); NRBC ABSOLUTE 0.72 K/mm3 (0.00-0.02); RDW Coefficient Variation 20.1 % (11.7-14.2); RDW Standard Deviation 61.8 fL (35.1-46.3); Red Blood Cell Count 3.11 M/mm3 (3.80-5.20); White Blood Cell Count 24.23 K/mm3 (4.00-11.30)
[2024-06-22 15:17] LABS: Platelet Count 13 K/mm3 (150-400)
[2024-06-23] MEDS ORDERED: NS 250 ML IV SCH (07:00)
[2024-06-23 14:11] VITALS: BP 98/41
[2024-06-23 14:28] VITALS: BP 93/43
[2024-06-23 14:50] VITALS: BP 96/39
== END 2024-06-23 15:07 | disposition home or self-care (01) ==
LOC: ATC 04:50 → EDSTATUS 14:00 → ATC 15:07
PROVIDERS: Internal Medicine Hematology & Oncology
DX: C92.00 Acute myeloblastic leukemia, not having achieved remission (principal); F17.210 Nicotine dependence, cigarettes, uncomplicated; Z79.899 Other long term (current) drug therapy; Z88.5 Allergy status to narcotic agent
CPT/HCPCS: 36415; 36430; 85027; 86900; 86901; J7050; P9035

== ENCOUNTER 2024-07-07 03:27 | Day surgery (SDC) | payer OTHER ==
[2024-07-06 14:22] LABS: Hematocrit 25.5 % (33.0-51.0); Hemoglobin 7.7 g/dL (11.5-16.0); Mean Corpuscular HGB 30.1 pg (26.0-34.0); Mean Corpuscular HGB Conc 30.2 g/dL (31.5-36.5); Mean Corpuscular Volume 100 fL (80-100); NRBC ABSOLUTE 2.32 K/mm3 (0.00-0.02); NRBC Auto 4.9 /100 WBC (0.0-0.2); RDW Coefficient Variation 22.2 % (11.7-14.2); RDW Standard Deviation 76.9 fL (35.1-46.3); Red Blood Cell Count 2.56 M/mm3 (3.80-5.20); White Blood Cell Count 47.67 K/mm3 (4.00-11.30)
[2024-07-06 14:48] LABS: Mean Platelet Volume 13.2 fL (9.1-12.4)
[2024-07-06 14:52] LABS: Platelet Count 19 K/mm3 (150-400)
[2024-07-07] MEDS ORDERED: NS 250 ML IV SCH (16:00)
[2024-07-07 16:16] VITALS: BP 93/66
[2024-07-07 16:34] VITALS: BP 89/39
[2024-07-07 17:36] VITALS: BP 100/42
== END 2024-07-07 18:21 | disposition home or self-care (01) ==
LOC: ATC 03:27 → EDSTATUS 15:30 → ATC 15:30
PROVIDERS: Internal Medicine Hematology & Oncology
DX: C92.00 Acute myeloblastic leukemia, not having achieved remission (principal); Z88.5 Allergy status to narcotic agent; Z79.899 Other long term (current) drug therapy
CPT/HCPCS: 36415; 36430; 85027; 86850; 86900; 86901; 86923; J7050; P9016

== ENCOUNTER 2024-07-23 02:31 | Day surgery (SDC) | payer OTHER ==
[2024-07-20 13:54] LABS: Hematocrit 27.9 % (33.0-51.0); Hemoglobin 8.3 g/dL (11.5-16.0); Mean Corpuscular HGB 29.9 pg (26.0-34.0); Mean Corpuscular HGB Conc 29.7 g/dL (31.5-36.5); Mean Corpuscular Volume 100 fL (80-100); Mean Platelet Volume 10.9 fL (9.1-12.4); NRBC ABSOLUTE 2.02 K/mm3 (0.00-0.02); NRBC Auto 4.1 /100 WBC (0.0-0.2); RDW Coefficient Variation 20.9 % (11.7-14.2); RDW Standard Deviation 73.6 fL (35.1-46.3); Red Blood Cell Count 2.78 M/mm3 (3.80-5.20); White Blood Cell Count 49.29 K/mm3 (4.00-11.30)
[2024-07-20 14:06] LABS: Platelet Count 23 K/mm3 (150-400)
[2024-07-20 14:54] LABS: BAND PERCENT MAN 5 % (0-8); BASOPHILS PERCENT MAN 0 % (0-2); BLASTS PERCENT MAN 10 % (0-0); EOSINOPHILS PERCENT MAN 0 % (0-6); LYMPHOCYTES ABSOLUTE MAN 4.43 K/mm3 (0.84-5.20); LYMPHOCYTES PERCENT MAN 9 % (21-46); METAMYELOCYTE ABSOLUTE MAN 0.49 K/mm3 (0.00-0.00); METAMYELOCYTE PERCENT MAN 1 % (0-0); MONOCYTES ABSOLUTE MAN 1.47 K/mm3 (0.16-1.47); MONOCYTES PERCENT MAN 3 % (4-13); MYELOCYTE ABSOLUTE MAN 0.98 K/mm3 (0.00-0.00); MYELOCYTE PERCENT MAN 2 % (0-0); NEUTROPHILS ABSOLUTE MAN 36.96 K/mm3 (1.96-9.15); SEG NEUTROPHILS PERCENT MAN 70 % (41-73); TOTAL CELLS COUNTED 100
[2024-07-23] MEDS ORDERED: NS 250 ML IV SCH (07:40)
[2024-07-23 12:15] VITALS: BP 90/72
[2024-07-23 12:39] VITALS: BP 93/48
[2024-07-23 13:38] VITALS: BP 94/45
[2024-07-23 13:57] VITALS: BP 94/45
== END 2024-07-23 14:03 | disposition home or self-care (01) ==
LOC: ATC 02:31 → EDSTATUS 12:00 → ATC 12:00
PROVIDERS: Internal Medicine Hematology & Oncology
DX: C92.00 Acute myeloblastic leukemia, not having achieved remission (principal); Z88.5 Allergy status to narcotic agent; Z87.891 Personal history of nicotine dependence; Z79.899 Other long term (current) drug therapy
CPT/HCPCS: 36415; 36430; 85025; 85027; 86850; 86900; 86901; 86923; J7050; P9016